=== PATIENT | male | born 1960 | race Caucasian/White ===

== ENCOUNTER 2022-01-07 07:27 | Emergency (ER) | payer BC, OTHER ==
[~2022-01-07] VITALS: Ht 182.9 cm; Wt 63.5 kg
--- NOTE | 2022-01-07 07:30 | NUR ---
BIB [facility]60 FROM HOME C/O BACK PAIN AND R FINGER PAIN S/P FALLING OUT OF BED THIS MORNING. -LOC, -KO. A&OX3. VITALS ARE WITHIN NORMAL LIMITS.
--- NOTE | 2022-01-07 07:36 | NUR ---
DR JENNINGS AT BEDSIDE FOR EVAL
[2022-01-07] MEDS ORDERED: LIDOCAINE 2% 20 ML MDV ONE (07:38)
--- NOTE | 2022-01-07 07:45 | NUR ---
NO ACTIVE BLEEDING ON SITE
[2022-01-07] MEDS ORDERED: LEVO500T90 PO (08:53)
--- NOTE | 2022-01-07 08:56 | NUR ---
SUTURE DONE ON RT MIDLE FIGER AND rt knee
[2022-01-07 09:13] VITALS: BP 110/57
--- NOTE | 2022-01-07 09:20 | NUR ---
Patient discharged to home in stable condition. Written and verbal after care instructions given. Patient verbalizes understanding of instruction.
[2022-01-07] MEDS ORDERED: LIDOCAINE 2% 20 ML MDV TP ONE (09:30)
== END 2022-01-07 09:20 | disposition home or self-care (01) ==
LOC: ER 07:36
DX: S63.294A Dislocation of distal interphalangeal joint of right ring finger, initial encounter (principal); S61.411A Laceration without foreign body of right hand, initial encounter; F32.A Depression, unspecified; F41.9 Anxiety disorder, unspecified; Z88.0 Allergy status to penicillin; Z88.2 Allergy status to sulfonamides; W06.XXXA Fall from bed, initial encounter; Y93.89 Activity, other specified; Y92.89 Other specified places as the place of occurrence of the external cause; Y99.8 Other external cause status
CPT/HCPCS: 99284; 26770; 72050; 73140; 12001; A6403 ×2; J3490